=== PATIENT | male | born 1955 | race Caucasian/White ===

== ENCOUNTER 2017-06-05 14:51 | Inpatient (IN) | payer OTHER ==
--- NOTE | 2017-06-05 15:05 | EDPHY ---
H & P - Personal History Tetanus Vaccine Date: within last 10 years - Medical/Surgical History Hx Asthma: No Hx Chronic Respiratory Disease: No Hx Diabetes: No Hx Cardiac Disease: No Hx Renal Disease: No Hx Cirrhosis: No Hx Alcoholism: Yes Hx HIV/AIDS: No Hx Splenectomy or Spleen Trauma: No Other PMH: ortho, depression,. BIPOLAR, PTSD, ACID REFL, FIBROMYALGIA. Psych - Social History Smoking Status: Current some day smoker Time Seen by Provider: 06/05/17 15:05 Constitutional: Initial Vital Signs Temperature (C) 37.4 C 06/05/17 15:13 Heart Rate 109 H 06/05/17 15:13 Respiratory Rate 18 06/05/17 15:13 Blood Pressure 125/96 H 06/05/17 15:13 O2 Sat (%) 93 06/05/17 15:13 O2 Delivery Mode Room Air Allergies/Adverse Reactions: No Known Allergies Allergy (Verified 10/12/15 09:08) Home Medications: Medication Instructions Recorded Naproxen Sodium [Aleve 220 MG (*)] 440 mg PO BID PRN 08/03/14 Famotidine [Pepcid AC] 10 mg PO BID 10/03/14 Divalproex [Depakote] 1,500 mg PO DAILY #90 tab 10/18/15 Divalproex [Depakote] 500 mg PO HS #30 tab 10/18/15 Famotidine [Pepcid 20 MG (*)] 20 mg PO BID #60 tab 10/18/15 Naproxen Sodium [Aleve 220 MG (*)] 440 mg PO BID PRN #60 tab 10/18/15 OLANZapine [ZyPREXA 2.5 mg (*)] 10 mg PO HS #30 tab 10/18/15 Prazosin HCl [Minipress 1mg (*)] 2 mg PO HS #30 cap 10/18/15 traZODone [traZODONE 100MG (*)] 200 mg PO HS #60 tab 10/18/15 Medical Decision Making ED Course/Re-evaluation: CHIEF COMPLAINT: Psychiatric evaluation HISTORY OF PRESENT ILLNESS: The patient is a 62 y/o male with a history of depression, bipolar disorder, and PTSD presenting for a mental health evaluation. He refuses to answer my questions, but is in no acute distress. He keeps repeating "understood" when I talk to him. REVIEW OF SYSTEMS: A 10 point review of systems was performed and is negative with the exception of the elements mentioned in the history of present illness. PHYSICAL EXAM: General Appearance: Only saying "understood", alert, well hydrated, appropriate , and non-toxic appearing. Head: Atraumatic without scalp tenderness or obvious injury Eyes: Pupils equal, round, reactive to light and accommodation, EOMI, no trauma , no injection. Ears: Clear bilaterally, no perforation, normal landmarks Nose: Atraumatic, no rhinorrhea, clear. Throat: Mucus membranes moist. Neck: Supple, nontender, no lymphadenopathy. Respiratory: No retractions, no distress, no wheezes, and no accessory muscle use. Lungs are clear to auscultation bilaterally. Cardiovascular: Regular rate and rhythm, no murmurs, rubs, or gallops. Good capillary refill all extremities. Gastrointestinal: Abdomen is soft, nontender, non-distended, no masses, no rebound, no guarding, no peritoneal signs. Musculoskeletal: Normal active ROM of all extremities, atraumatic. Neurological: Alert. Non-focal neuro. Skin: No rashes, good turgor, no nodules on palpation. Past medical history: Depression, bipolar disorder, PTSD, fibromyalgia Past surgical history: Denies Family history: Denies Social history: Lives in [place], single, smoker DIFFERENTIAL DIAGNOSIS: The differential diagnosis for the patient's depression included but was not limited to functional and major depression, situational depression, medication side effect, drugs, and alcohol abuse. MEDICAL DECISION MAKING: The patient is a 62 y/o male with a history of depression and bipolar disorder presenting for a mental health evaluation. On exam he will only answer my questions by responding "understood". Patient is in no acute distress and is hemodynamically stable. We are awaiting psychiatric team's evaluation. Patient has known history of psychiatric disorders and is here for evaluation. 1951: Consulted with mental health; they report that the patient will need to be admitted as he has been off of his medications for over a year. (Vladimir Schmid) Other Provider: 7 a.m.- Patient has been stable throughout my shift. He is currently awaiting placement. (Lelo Edmonds) Care assumed at 6:[address] Edmonds , patient has been medically cleared is on a mental health hold and is awaiting psychiatric placement. 821: Increasingly agitated, patient did well with Zyprexa last night, 10 mg oral ordered. (Seng Stone) - Data Points Laboratory Results: Laboratory Results 06/05/17 15:35 06/05/17 15:35 Medications Given: Discontinued Medications Lorazepam (Ativan) 2 mg PO EDNOW ONE Stop: 06/06/17 01:06 Last Admin: 06/06/17 01:05 Dose: 2 mg Olanzapine (Zyprexa Zydis) 10 mg PO EDNOW ONE Stop: 06/05/17 22:11 Last Admin: 06/05/17 22:11 Dose: 10 mg Olanzapine (Zyprexa Zydis) 10 mg PO EDNOW ONE Stop: 06/06/17 08:20 Last Admin: 06/06/17 08:36 Dose: 10 mg Departure - Departure Disposition: [facility] IP Clinical Impression: Bipolar disorder Condition: Good Referrals: NOT,SURE [Other] - As per Instructions Report Scribed for: Vladimir Schmid Report Scribed by: Kayce Ramírez Date of Report: 06/05/17 Time of Report: 15:08
[2017-06-05 15:50] LABS: PLATELET COUNT 244 10^3/uL (150-400)
[2017-06-05] MEDS ORDERED: OLANZapine DISINTEGR 10 MG TAB ONE (21:44)
[2017-06-05] MEDS ORDERED: OLANZapine DISINTEGR 10 MG TAB PO ONE (22:10)
[2017-06-06] MEDS ORDERED: LORazepam 1 MG TAB ONE ×2 (00:52→01:00)
[2017-06-06] MEDS ORDERED: LORazepam 1 MG TAB PO ONE (01:05)
[2017-06-06] MEDS ORDERED: OLANZapine DISINTEGR 5 MG TAB PO ONE (08:19)
[2017-06-06] MEDS ORDERED: MAGNESIUM HYDROXIDE 30 ML UDCUP PO PRN (16:44)
[2017-06-06] MEDS ORDERED: MAG HYDROX/AL HYDROX/SIMETH 30 ML UDCUP PO PRN (16:44)
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
[2017-06-06] MEDS: OLANZapine DISINTEGR 10 MG TAB PO SCH ×2 (20:00→23:59)
[2017-06-07] MEDS: OLANZapine DISINTEGR 10 MG TAB PO PRN ×3 (00:05→12:43)
[2017-06-07] MEDS: LORazepam 0.5 MG TAB PO PRN (01:48)
--- NOTE | 2017-06-07 11:39 | SOAPPROG ---
SOAP Progress Note Assessment/Plan: Assessment: Plan: 06/07/17 11:39 Psychotic brice: Remains manic, psychotic. Will increase Zyprexa to 15mg, introduce VPA. Subjective: Pt seen, discussed with staff. Remains disorganized, paranoid. Describes seeing things moving across the floor. Cooperative and compliant with meds. Offer no c/o's. Did not sleep last night. Objective: Vital Signs Temp Pulse Resp BP Pulse Ox 36.3 C 104 H 18 130/85 H 95 06/07/17 04:47 06/07/17 04:47 06/07/17 04:47 06/07/17 04:47 06/07/17 04:47 MSE: Poorly groomed, coop. Affect is constricted, stable. Mood is "OK." TP disorganized. TC reveals paranoid thoughts that "people are messing with me." Appears to experience VH's. - Time Spent With Patient Time Spent With Patient: 15" - Pending Discharge Pending Discharge Within 24 Hours: No Pending Discharge Within 48 Hours: No ICD10 Worksheet Patient Problems: Problems Problem Status Onset Bipolar illness Acute Bipolar 1 disorder, manic, moderate Acute
--- NOTE | 2017-06-07 16:38 | BCON ---
[f rep st] BEHAVIORAL HEALTH CONSULTATION INTERNAL MEDICINE CONSULTATION DATE OF CONSULTATION: 06/07/2017 REFERRING PHYSICIAN: Travon Azevedo MD REASON FOR REFERRAL: Medical clearance for inpatient behavioral health stay. HISTORY OF PRESENT ILLNESS: This patient was brought to the emergency department on an M1 hold by police after a welfare check. He was found to be disorganized, malodorous, with a cluttered, malodorous home. He was evaluated by the mental health team and admitted for further psychiatric care. He is currently without any acute complaints. PAST MEDICAL HISTORY: 1. Fibromyalgia. 2. Gastroesophageal reflux disorder. 3. Bipolar disorder. 4. History of orthopedic injuries. MEDICATIONS: He had been prescribed psychiatric medications on his previous inpatient psychiatric stay in October of 2015, but he was not taking any medications. PAST SURGICAL HISTORY: He denies any history of surgeries. 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 He is on disability. He lives by himself. He has a history of marijuana smoking as well as tobacco smoking. FAMILY HISTORY: He does not provide any family history. REVIEW OF SYSTEMS: Vague. The patient is somewhat concrete, but also has bizarre answers. When asked if he has chest pain, he begins counting his pulse , but he denies chest pain, cough, dyspnea, fevers, chills, nausea, vomiting, constipation, or diarrhea. He is not in pain. When asked if he has an appetite , he replies, "if you're cooking." Otherwise, a 10-point review of systems to the extent that it could be obtained was negative. PHYSICAL EXAM: VITAL SIGNS: Blood pressure is 130/85, heart rate is 104, respiratory rate is 18, oxygen saturation is 95% on room air. Temperature is 36.3 degrees centigrade. His weight is 72.6 kg, for a body mass index of 24.3. GENERAL: This is a well-nourished, well-developed man, appears his chronologic age, cooperative, in no acute distress, but with [id number] psychomotor agitation. During the exam, he abruptly stands up and walks into another room. He does not return until the examiner summons him. He reports he is straightening up. He is in the seclusion room, making the bed. HEENT: Extraocular movements are intact. Pupils are equal, round, reactive to light. Mucous membranes are moist. Dentition is in good condition. He has uncrowded airway, Mallampati class 1. NECK: Supple. HEART: There is a regular rate and rhythm. He is mildly tachycardic. There are no murmurs, rubs, or gallops. LUNGS: Clear to auscultation bilaterally. ABDOMEN: Benign. EXTREMITIES: There is no cyanosis, clubbing, or edema. NEUROLOGIC: He is alert and oriented to the month and the date. He cannot recall the name of the facility, but he knows he has been here before. He cannot recall the name of the examiner , though I introduced myself and he repeated my name previously. Cranial nerves 2-12 are grossly intact. There is no focal weakness. Sensation is intact to light touch and gait is within normal limits. SKIN: He has a rash bilaterally on his shins with 1-2 mm erythematous plaques scattered. They appear to be pruritic, as he is rubbing his shins vigorously with his palms while he shows me the rash. LABORATORY STUDIES: From 2 days ago, CBC was overall within normal limits. He had a mild increase of neutrophils at 7.15, and a mild decrease of eosinophils. Serum chemistry revealed a slightly increased sodium at 146, carbon dioxide was slightly low at 19, anion gap was elevated at 19, glucose was elevated at 115, but this may not have been fasting as it was drawn in the afternoon. Calcium was very slightly elevated at 10.5. Toxicology screen in the serum was negative for salicylates, acetaminophen or ethyl alcohol, and the urine was negative for any substances of abuse. ASSESSMENT/RECOMMENDATIONS: 1. Mental health issues, pending further evaluation and management per Psychiatry and the Mental Health Team. 2. Pruritus, possibly due to dry skin. I will order a skin emollient on a p.r.n. basis, but whether he should be given it I leave to the discretion of the mental health team, as his behavior is bizarre at present. 3. Hypernatremia and anion gap. These may be the result of anorexia, as there was no food in the house and no room to prepare food. Advise observing for normal p.o. intake. If he has normal nutrition, hydration as his psychiatric state normalizes, I see no indication to repeat the lab tests. 4. I see no medical contraindications to this patient's continued stay on the inpatient behavioral health unit or to any psychiatric medications or procedures. Thank you very much for including me in the care of this patient. Please do not hesitate to contact me or the hospitalist service should there be need for further medical evaluation. /[id number]/MODL MTDD
[2017-06-07] MEDS: OLANZapine DISINTEGR 10 MG TAB PO SCH (20:28)
[2017-06-07] MEDS: AQUAPHOR OINTMENT 3.5 OZ JAR TP SCH (20:29)
[2017-06-08] MEDS: ACETAMINOPHEN 325 MG TAB PO PRN (06:55)
[2017-06-08] MEDS: DIVALPROEX ER 500 MG TAB PO SCH ×3 (08:45→23:53)
[2017-06-08] MEDS: AQUAPHOR OINTMENT 3.5 OZ JAR TP SCH ×2 (08:46→20:24)
[2017-06-08] MEDS: OLANZapine DISINTEGR 10 MG TAB PO PRN ×2 (08:59→23:56)
[2017-06-08] MEDS: EPSOM SALT 454 GM TP SCH ×2 (14:17→20:22)
--- NOTE | 2017-06-08 15:39 | SOAPPROG ---
SOPELON Progress Note Assessment/Plan: Assessment: Plan: 06/07/17 11:39 Psychotic brice: Remains manic, psychotic. Will increase Zyprexa to 15mg, introduce VPA. 06/08/17 15:39 Psychotic brice: Significant improvement. [facility]. Subjective: Pt seen, discussed with staff. Better organized today, though still derails frequently. He states he knows he needs to be in the hospital. Talks quite a bit about how intelligent he is, stating he has 28 PhD's and "broke the IQ test. 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 He states he learns mostly from "practical work" and "telepathic conversations." Compliant with meds, though refused VPA this morning. We discussed this and he agrees to take it now. Objective: Vital Signs Temp Pulse Resp BP Pulse Ox 34.8 C L 75 20 124/83 H 94 06/08/17 06:00 06/08/17 06:00 06/08/17 06:00 06/08/17 06:00 06/08/17 06:00 - Time Spent With Patient Time Spent With Patient: 25" ICD10 Worksheet Patient Problems: Problems Problem Status Onset Bipolar illness Acute Bipolar 1 disorder, manic, moderate Acute
[2017-06-08] MEDS: ONDANSETRON DISINTEGRATING 4 MG TAB PO PRN (20:18)
[2017-06-08] MEDS: OLANZapine DISINTEGR 10 MG TAB PO SCH (20:58)
[2017-06-08] MEDS: LORazepam 0.5 MG TAB PO PRN (23:54)
[2017-06-09] MEDS: DIVALPROEX ER 500 MG TAB PO SCH (07:44)
[2017-06-09] MEDS: EPSOM SALT 454 GM TP SCH ×2 (07:45→18:43)
[2017-06-09] MEDS: AQUAPHOR OINTMENT 3.5 OZ JAR TP SCH ×2 (07:50→18:44)
[2017-06-09] MEDS: OLANZapine DISINTEGR 10 MG TAB PO PRN (08:36)
[2017-06-09] MEDS: ACETAMINOPHEN 325 MG TAB PO PRN ×2 (09:22→13:53)
--- NOTE | 2017-06-09 15:13 | SOAPPROG ---
SOAP Progress Note Assessment/Plan: Assessment: Per Dr. Azevedo's note: 06/07/17 11:39 Psychotic brice: Remains manic, psychotic. Will increase Zyprexa to 15mg, introduce VPA. 06/08/17 15:39 Psychotic brice: Significant improvement. CCM. Subjective: Pt seen, discussed with staff. Better organized today, though still derails frequently. He states he knows he needs to be in the hospital. Talks quite a bit about how intelligent he is, stating he has 28 PhD's and "broke the IQ test. 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 He states he learns mostly from "practical work" and "telepathic conversations." Compliant with meds, though refused VPA this morning. We discussed this and he agrees to take it now. Plan: 06/09/17 15:08 1. Patient is compliant with all meds, though initially hesitant to take his VPA. 2. Patient requesting Pepcid for GERD and some Tums. Subjective: Met with patient, reviewed chart and d/w staff. Patient says he is feeling " very anxious" and wants "more meds." Explained that he needs to give new med, Depakote, a chance to start working. He agreed. He is also requesting meds for GERD, he takes Pepcid at home. No SI/HI, less paranoid, with no pressured speech or less racing thoughts. Worried that his cat got out of the house when he was brought to hospital and might be outside "in cold." MD asked if there were any neighbors or friends patient could contact to look for his cat. He said , "no." Objective: Vital Signs Temp Pulse Resp BP Pulse Ox 36.7 C 98 20 122/83 H 95 06/09/17 06:00 06/09/17 06:00 06/09/17 06:00 06/09/17 06:00 06/09/17 06:00 MSE: Affect: Anxious Mood: "anxious" TP: Tangential TC: No racing thoughts, no SI/HI Insight/Judgment: Poor - Time Spent With Patient Time Spent With Patient: 25" - Pending Discharge Pending Discharge Within 24 Hours: No Pending Discharge Within 48 Hours: No ICD10 Worksheet Patient Problems: Problems Problem Status Onset Bipolar illness Acute Bipolar 1 disorder, manic, moderate Acute
[2017-06-09] MEDS: CALCIUM CARBONATE 500 MG CHEWABLE TAB PO PRN (18:01)
[2017-06-09] MEDS: OLANZapine DISINTEGR 10 MG TAB PO SCH (21:08)
[2017-06-09] MEDS: FAMOTIDINE 20 MG TAB PO SCH (21:09)
[2017-06-10] MEDS: ACETAMINOPHEN 325 MG TAB PO PRN (06:58)
[2017-06-10] MEDS: ONDANSETRON DISINTEGRATING 4 MG TAB PO PRN (06:58)
[2017-06-10] MEDS: DIVALPROEX ER 500 MG TAB PO SCH (08:20)
[2017-06-10] MEDS: FAMOTIDINE 20 MG TAB PO SCH ×2 (08:20→20:00)
[2017-06-10] MEDS: LORazepam 0.5 MG TAB PO PRN (08:26)
[2017-06-10] MEDS: AQUAPHOR OINTMENT 3.5 OZ JAR TP SCH ×2 (11:00→19:41)
[2017-06-10] MEDS: EPSOM SALT 454 GM TP SCH ×2 (12:31→19:40)
--- NOTE | 2017-06-10 13:03 | SOAPPROG ---
SOAP Progress Note Assessment/Plan: Assessment: Per Dr. Azevedo's note: 06/07/17 11:39 Psychotic brice: Remains manic, psychotic. Will increase Zyprexa to 15mg, introduce VPA. 06/08/17 15:39 Psychotic brice: Significant improvement. CCM. Subjective: Pt seen, discussed with staff. Better organized today, though still derails frequently. He states he knows he needs to be in the hospital. Talks quite a bit about how intelligent he is, stating he has 28 PhD's and "broke the IQ test. 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 He states he learns mostly from "practical work" and "telepathic conversations." Compliant with meds, though refused VPA this morning. We discussed this and he agrees to take it now. Plan: 06/09/17 15:08 1. Patient is compliant with all meds, though initially hesitant to take his VPA. 2. Patient requesting Pepcid for GERD and some Tums. 06/10/17 13:00 1. Patient reports improvement in GERD sxs with Pepcid 2. Patient compliant with meds Subjective: Met with patient, reviewed chart and d/w staff. Patient says he feels "better and worse" today. He reports that Pepcid was "helpful" for GERD sxs. He is worried about his cat and perseverates on that most of the day today. Pam, the CM, contacted Animal Control who agreed to go to patient's home and burr picker his cat and take the animal to [facility]. Despite this, patient is still "worried" they won't find his cat b/c he thinks the cat was locked out of his house when EMS picked him up. MD and CM both attempted to reassure patient. He denies any SI/HI. Objective: Vital Signs Temp Pulse Resp BP Pulse Ox 36.5 C 101 H 16 111/84 H 96 06/10/17 06:00 06/10/17 06:00 06/10/17 06:00 06/10/17 06:00 06/10/17 06:00 MSE: Affect: Flat Mood: "Better and worse" TP: Perseverative, goal-directed TC: No SI/HI, no AH/VH Insight/Judgment: Poor - Time Spent With Patient Time Spent With Patient: 20" - Pending Discharge Pending Discharge Within 24 Hours: No Pending Discharge Within 48 Hours: No ICD10 Worksheet Patient Problems: Problems Problem Status Onset Bipolar illness Acute Bipolar 1 disorder, manic, moderate Acute
[2017-06-10] MEDS: CALCIUM CARBONATE 500 MG CHEWABLE TAB PO PRN (19:59)
[2017-06-10] MEDS: OLANZapine DISINTEGR 10 MG TAB PO SCH (20:00)
[2017-06-11] MEDS: ACETAMINOPHEN 325 MG TAB PO PRN ×3 (07:08→20:38)
[2017-06-11] MEDS: NICOTINE POLACRILEX 2 MG GUM B PRN ×3 (07:09→17:48)
[2017-06-11] MEDS: DIVALPROEX ER 500 MG TAB PO SCH (08:34)
[2017-06-11] MEDS: FAMOTIDINE 20 MG TAB PO SCH ×2 (08:34→20:40)
--- NOTE | 2017-06-11 11:12 | SOAPPROG ---
SOAP Progress Note Assessment/Plan: Assessment: Plan: 06/07/17 11:39 Psychotic brice: Remains manic, psychotic. Will increase Zyprexa to 15mg, introduce VPA. 06/08/17 15:39 Psychotic brice: Significant improvement. CCM. 06/11/17 11:13 Psychotic brice: Continued gradual improvement. Remains delusional and labile. CCM. VPA level in the morning. Subjective: Pt seen, discussed with staff. Reports feeling "better, but still not right." Affect is more stable. Mood is brighter, less irritable, less paranoid. More appropriate in social interactions. Objective: Vital Signs Temp Pulse Resp BP Pulse Ox 36.2 C 88 16 103/67 95 06/11/17 06:00 06/11/17 06:00 06/11/17 06:00 06/11/17 06:00 06/11/17 06:00 MSE: Moderately agitated, interactive. Affect is labile, crying at times. Mood is "better." TP generally disorganized. TC reveals continued grandiose thoughts. - Time Spent With Patient Time Spent With Patient: 25" ICD10 Worksheet Patient Problems: Problems Problem Status Onset Bipolar illness Acute Bipolar 1 disorder, manic, moderate Acute
[2017-06-11] MEDS: AQUAPHOR OINTMENT 3.5 OZ JAR TP SCH ×2 (11:58→22:32)
[2017-06-11] MEDS: EPSOM SALT 454 GM TP SCH ×2 (11:59→22:32)
[2017-06-11] MEDS: OLANZapine DISINTEGR 10 MG TAB PO SCH (20:39)
[2017-06-12] MEDS: ACETAMINOPHEN 325 MG TAB PO PRN (06:25)
[2017-06-12] MEDS: FAMOTIDINE 20 MG TAB PO SCH ×2 (08:50→17:56)
[2017-06-12] MEDS: DIVALPROEX ER 500 MG TAB PO SCH (08:50)
[2017-06-12] MEDS: CALCIUM CARBONATE 500 MG CHEWABLE TAB PO PRN (08:51)
[2017-06-12] MEDS: NICOTINE POLACRILEX 2 MG GUM B PRN ×3 (08:51→19:16)
[2017-06-12] MEDS: EPSOM SALT 454 GM TP SCH ×2 (08:52→20:19)
[2017-06-12] MEDS: AQUAPHOR OINTMENT 3.5 OZ JAR TP SCH ×2 (08:52→20:20)
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
[2017-06-12] MEDS: OLANZapine DISINTEGR 10 MG TAB PO SCH (18:28)
[2017-06-12] MEDS: NAPROXEN SODIUM 220 MG TAB PO PRN (21:58)
[2017-06-13] MEDS: NAPROXEN SODIUM 220 MG TAB PO PRN ×2 (05:47→13:07)
[2017-06-13] MEDS: FAMOTIDINE 20 MG TAB PO SCH ×2 (08:09→20:48)
[2017-06-13] MEDS: DIVALPROEX ER 500 MG TAB PO SCH (08:09)
[2017-06-13] MEDS: NICOTINE POLACRILEX 2 MG GUM B PRN ×3 (08:09→18:30)
[2017-06-13] MEDS: EPSOM SALT 454 GM TP SCH ×2 (08:10→20:50)
[2017-06-13] MEDS: AQUAPHOR OINTMENT 3.5 OZ JAR TP SCH ×2 (08:11→20:50)
--- NOTE | 2017-06-13 16:09 | SOAPPROG ---
SOAP Progress Note Assessment/Plan: Assessment: Plan: 06/07/17 11:39 Psychotic brice: Remains manic, psychotic. Will increase Zyprexa to 15mg, introduce VPA. 06/08/17 15:39 Psychotic brice: Significant improvement. CCM. 06/11/17 11:13 Psychotic brice: Continued gradual improvement. Remains delusional and labile. CCM. VPA level in the morning. 06/12/17 14:29 Bipolar D/O: Much improved, even from yesterday. Will CCM. Pt agreeable to continue VPA as outpatient. Case reviewed with his outpatient provider at [facility] who informs me she is leaving the organization and will assign him to another provider prior to d/c. Like d/c by the end of the week if continued progress. 06/13/17 16:10 Bipolar D/o: Stabilizing. Delusions appear to be baseline. May suggest a secondary delusional d/o or Schizoaffective D/o. CCM. Possible d/c tomorrow if all is well. Subjective: Pt seen, discussed with staff. Reports feeling "pretty down." He continues to perseverate on the past. Tells me again that he has 28 PhD's, "broke the IQ test in my weaker subject", is "80% of the way towards my MD degree", etc. Objective: Vital Signs Temp Pulse Resp BP Pulse Ox 37.1 C 63 14 112/82 H 97 06/13/17 06:00 06/13/17 06:00 06/13/17 06:00 06/13/17 06:00 06/13/17 06:00 MSE: Moderately anxious, coop. Affect is o/w constricted, stable. Mood is "sad." TP perseverative, circumstantial. TC reveals continued grandiose delusions. Denies SI/HI/. - Time Spent With Patient Time Spent With Patient: 25" ICD10 Worksheet Patient Problems: Problems Problem Status Onset Bipolar illness Acute Bipolar 1 disorder, manic, moderate Acute
[2017-06-13] MEDS: OLANZapine DISINTEGR 10 MG TAB PO SCH (20:48)
[2017-06-14] MEDS: NICOTINE POLACRILEX 2 MG GUM B PRN ×2 (05:04→07:25)
[2017-06-14 06:45] VITALS: BP 118/84; PULSE 87; RESP 16; TEMP 97.5; O2SAT 96
[2017-06-14] MEDS: DIVALPROEX ER 500 MG TAB PO SCH (07:43)
[2017-06-14] MEDS: FAMOTIDINE 20 MG TAB PO SCH (07:44)
[2017-06-14] MEDS: OLANZapine DISINTEGR 10 MG TAB PO PRN (07:47)
[2017-06-14] MEDS: NAPROXEN SODIUM 220 MG TAB PO PRN (09:01)
== END 2017-06-14 12:40 | disposition home or self-care (01) | DRG 885 ==
LOC: BBEH 06-06 14:20
PROVIDERS: ADMIT Psychiatry & Neurology Psychiatry; ATTEND Psychiatry & Neurology Psychiatry
DX: F31.9 Bipolar disorder, unspecified (principal); E87.0 Hyperosmolality and hypernatremia; M79.7 Fibromyalgia; K21.9 Gastro-esophageal reflux disease without esophagitis; L29.9 Pruritus, unspecified; T43.506A Underdosing of unspecified antipsychotics and neuroleptics, initial encounter; F12.90 Cannabis use, unspecified, uncomplicated; Z72.0 Tobacco use
CPT/HCPCS: 80305; G0480

== ENCOUNTER 2017-06-26 13:07 | Inpatient (IN) | payer OTHER ==
--- NOTE | 2017-06-26 13:18 | EDPHY ---
H & P Source: Patient Exam Limitations: No limitations - Personal History Tetanus Vaccine Date: within last 10 years - Medical/Surgical History Hx Asthma: No Hx Chronic Respiratory Disease: No Hx Diabetes: No Hx Cardiac Disease: No Hx Renal Disease: No Hx Cirrhosis: No Hx Alcoholism: Yes Hx HIV/AIDS: No Hx Splenectomy or Spleen Trauma: No Other PMH: ortho, depression,. BIPOLAR, PTSD, ACID REFL, FIBROMYALGIA. Psych - Social History Smoking Status: Current some day smoker Time Seen by Provider: 06/26/17 13:18 HPI/ROS: CHIEF COMPLAINT: Psychotic HISTORY OF PRESENT ILLNESS: The patient presents the emergency department via ambulance on an M1 psychiatric hold for psychotic behavior. He has a history of bipolar mood disorder with psychosis. He was recently hospitalized at the inpatient unit at [facility]. He was started on Zyprexa at that point time. He reports he ran out of the medication 4 days ago. He reports he has been taking Depakote. The patient reportedly was urinating outside his apartment complex in flower beds and asking neighbors for nude pictures. The patient denies any ingestion. He denies suicidal or homicidal ideation. REVIEW OF SYSTEMS: A comprehensive 10 point review of systems is otherwise negative aside from elements mentioned in the history of present illness. (Hussein Moore) - Physical Exam Exam: General Appearance: Alert, no distress Eyes: Pupils equal and round no pallor or injection ENT, Mouth: Mucous membranes moist Respiratory: There are no retractions, lungs are clear to auscultation Cardiovascular: Regular rate and rhythm Gastrointestinal: Abdomen is soft and nontender, no masses, bowel sounds normal Neurological: A&O, normal motor function, normal sensory exam, normal cranial nerves Skin: Warm and dry, no rashes Musculoskeletal: Neck is supple nontender Extremities: symmetrical, full range of motion Psychiatric: Psychotic, not agitated, tangential, cooperative (Hussein Moore ) Constitutional: Initial Vital Signs Temperature (C) 36.7 C 06/26/17 13:07 Heart Rate 96 06/26/17 13:07 Respiratory Rate 16 06/26/17 13:07 Blood Pressure 122/76 H 06/26/17 13:07 O2 Sat (%) 95 06/26/17 13:07 O2 Delivery Mode Room Air Allergies/Adverse Reactions: lactose Allergy (Verified 06/26/17 13:21) Home Medications: Medication Instructions Recorded Calcium Carbonate [Tums 500MG (*)] 500 mg PO TID PRN tab.chew 06/14/17 Divalproex ER [Depakote ER 500 MG 1,500 mg PO DAILY #90 tab 06/14/17 (*)] Famotidine [Pepcid 20 MG (*)] 20 mg PO BID #60 tab 06/14/17 Mineral Oil/Pet Hy-Phl [Aquaphor 1 piyush TP BID jar 06/14/17 Ointment (*)] OLANZapine [Zyprexa] 15 mg PO HS #30 tablet 06/14/17 Valium 06/26/17 Zoloft 50mg (*) 06/26/17 Medical Decision Making ED Course/Re-evaluation: I reviewed the patient's past medical records. The patient was given 5 mg of Zyprexa. He is currently on an M1 psychiatric hold. Screening laboratory studies and urinalysis have been sent. The patient was evaluated by Mental Health. They are attempting to place the patient into a ATU. He will be turned over to Dr. Calderon at shift change pending psychiatric disposition. (Hussein Moore) 11:00 p.m.: Patient has been cooperative during the 2 hrs that he has been under my care. Awaiting placement. His care will be transferred to Dr. Edmonds at 11:15 PM. (Sonia Calderon) 5:40 a.m.- The patient has been stable during my shift. He is awaiting placement at an ATU. At 7:00 a.m., I anticipate the case will be signed out to the oncoming provider Dr. Parks. (Lelo Edmonds) Differential Diagnosis: Differential diagnosis considered includes psychosis, bipolar mood disorder, substance abuse, metabolic abnormality, toxication (Hussein Moore) Other Provider: 0700 care assumed by me from Dr. Edmonds pending placement. (Sadi Parks) - Data Points Laboratory Results: Laboratory Results 06/26/17 13:47 06/26/17 13:47 Medications Given: Discontinued Medications Olanzapine (Zyprexa Zydis) 5 mg PO EDNOW ONE Stop: 06/26/17 13:36 Last Admin: 06/26/17 14:00 Dose: 5 mg Departure - Departure Clinical Impression: Acute psychosis, Bipolar 1 disorder, manic, moderate Condition: Good Referrals: Patient,NotPresent [Unknown] - As per Instructions
[2017-06-26] MEDS ORDERED: OLANZapine DISINTEGR 5 MG TAB PO ONE (13:35)
[2017-06-26 14:11] LABS: PLATELET COUNT 148 10^3/uL (150-400)
[2017-06-27] MEDS ORDERED: OLANZapine DISINTEGR 10 MG TAB PO PRN (11:16)
[2017-06-27] MEDS ORDERED: MAGNESIUM HYDROXIDE 30 ML UDCUP PO PRN (11:16)
[2017-06-27] MEDS ORDERED: NICOTINE POLACRILEX 2 MG GUM B PRN (11:16)
[2017-06-27] MEDS ORDERED: MAG HYDROX/AL HYDROX/SIMETH 30 ML UDCUP PO PRN (11:16)
[2017-06-27] MEDS ORDERED: LORazepam 0.5 MG TAB PO PRN (11:16)
[2017-06-27] MEDS ORDERED: ACETAMINOPHEN 325 MG TAB PO PRN (11:16)
[2017-06-27] MEDS: DIAZEPAM 5 MG TAB PO SCH (20:44)
[2017-06-27] MEDS: DIVALPROEX ER 500 MG TAB PO SCH (20:46)
[2017-06-27] MEDS: FAMOTIDINE 20 MG TAB PO SCH (20:46)
[2017-06-27] MEDS: OLANZapine DISINTEGR 5 MG TAB PO SCH (20:47)
[2017-06-27] MEDS ORDERED: FAMOTIDINE 10 MG PO SCH (21:00)
[2017-06-27] MEDS ORDERED: OLANZAPINE 15 MG PO SCH (21:00)
[2017-06-28 07:06] VITALS: O2SAT 96
[2017-06-28] MEDS: DIAZEPAM 5 MG TAB PO SCH ×2 (08:25→20:26)
[2017-06-28] MEDS: FAMOTIDINE 20 MG TAB PO SCH ×2 (08:25→20:26)
[2017-06-28] MEDS: MULTIVITAMINS 1 EACH TAB PO SCH (08:25)
[2017-06-28] MEDS: ASCORBIC ACID 500 MG TAB PO SCH (08:25)
[2017-06-28] MEDS: DIVALPROEX ER 500 MG TAB PO SCH ×2 (08:25→20:27)
[2017-06-28] MEDS: [UNRECOGNIZED DRUG - OTHER] PO SCH (10:46)
[2017-06-28] MEDS: OLANZapine DISINTEGR 5 MG TAB PO SCH (20:29)
[2017-06-29 06:35] VITALS: BP 97/56; PULSE 65; RESP 14; TEMP 97.5
[2017-06-29] MEDS: DIVALPROEX ER 500 MG TAB PO SCH (08:42)
[2017-06-29] MEDS: ASCORBIC ACID 500 MG TAB PO SCH (08:42)
[2017-06-29] MEDS: FAMOTIDINE 20 MG TAB PO SCH (08:43)
[2017-06-29] MEDS: MULTIVITAMINS 1 EACH TAB PO SCH (08:43)
[2017-06-29] MEDS: DIAZEPAM 5 MG TAB PO SCH (08:43)
[2017-06-29] MEDS: [UNRECOGNIZED DRUG - OTHER] PO SCH (09:04)
--- NOTE | 2017-06-29 17:06 | BDS ---
[f rep st] BEHAVIORAL HEALTH DISCHARGE SUMMARY REASON FOR ADMISSION: Patient is a 62-year-old male known to us from a very recent admissi on. He has a history of bipolar disorder and had been medication noncompliant resulting in brice wit h psychosis and some disordered behaviors. He was hospitalized with us from 06/06/17 to 06/14/17. Nusrat whyte then returned home and apparently did well at first, but then displayed some agitated behaviors and the police were called. He was then brought to the hospital where he was evaluated and readmitted. ADMITTING DIAGNOSES: Bipolar 1 disorder, most recent episode manic, severe with psychosis, cannabis use disorder, mild chronic illness, recurrent illness, lack of supports, and marginal living situatio n. ADMITTING PHYSICAL EXAMINATION: Not performed due to proximity to recent admission. ADMITTING LABORATORY: CBC is normal. Serum chemistries are normal. Urine drug screen is positive f or benzodiazepines and marijuana. HOSPITAL COURSE: Patient was admitted to behavioral health services inpatient unit on an M1 hold. Nusrat whyte was quite calm, lucid, cooperative, and displayed no evidence of brice or psychosis on my initial i nterview on 06/27/2017. He was then seen on 06/28 and 06/29/2017, as well and continued to remain st able. He slept more than 6 hours per night, was calm, cooperative, participated in all groups and wa s compliant with his medications and did not appear to meet criteria for continued involuntary treatm ent. He requested discharge to return to his home, and I felt this was appropriate. CONDITION ON DISCHARGE: Stable. Patient was showing no evidence of brice or psychosis. He is compl iant with medications. DISCHARGE MEDICATIONS: Zyprexa 15 mg p.o. q.h.s., diazepam 5 mg p.o. b.i.d., Depakote 1500 mg p.o. d aily, famotidine 10 mg p.o. b.i.d., and some PreserVision soft gel vitamins for his eyes, and vitamin C 1000 mg daily. DISPOSITION: Patient left the hospital to return to his home of his own accord. FOLLOWUP: With [facility] scheduled for next week with his home health care case manager and in July with Dr. Gonzales. LEGAL COURSE: Patient was discharged with expiration of his M1 hold. /[id number]/MODL
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
== END 2017-06-29 11:10 | disposition home or self-care (01) | DRG 885 ==
LOC: EDUNIT# → EDBD → BBEH 06-27 10:55
PROVIDERS: ADMIT Psychiatry & Neurology Psychiatry; ATTEND Psychiatry & Neurology Psychiatry
DX: F31.2 Bipolar disorder, current episode manic severe with psychotic features (principal); F12.90 Cannabis use, unspecified, uncomplicated; T43.506A Underdosing of unspecified antipsychotics and neuroleptics, initial encounter; Z72.0 Tobacco use
CPT/HCPCS: 80305; G0480

== ENCOUNTER → 2017-12-14 | Outpatient (CLI) | payer OTHER ==
[~2017-12-14] MED LIST: GADOBUTROL 10 ML VIAL IVP ONE
== END ==
LOC: FIMAGING 06:47
PROVIDERS: ATTEND Psychiatry & Neurology Neurology
DX: R25.1 Tremor, unspecified (principal); J32.2 Chronic ethmoidal sinusitis
CPT/HCPCS: 70553; A9585